=== PATIENT | female | born 1995 | race Caucasian/White ===

== ENCOUNTER 2025-03-26 20:56 | Emergency (ER) | payer MEDICAID, OTHER ==
[2025-03-26] MEDS ORDERED: Acetaminophen 500 MG TAB ONE (23:33)
[2025-03-26] MEDS ORDERED: Ibuprofen 200 MG TAB ONE (23:33)
== END 2025-03-27 00:27 | disposition home or self-care (01) ==
LOC: ERS 20:56
DX: S86.112A Strain of other muscle(s) and tendon(s) of posterior muscle group at lower leg level, left leg, initial encounter (principal); X50.0XXA Overexertion from strenuous movement or load, initial encounter; Y93.64 Activity, baseball
CPT/HCPCS: 99283